=== PATIENT | female | born 1980 | race Caucasian/White ===

== ENCOUNTER 2021-01-18 17:46 | Emergency (ER) | payer BC ==
[~2021-01-18] VITALS: Ht 170.2 cm; Wt 113.4 kg
[2021-01-18 18:27] LABS: HEMOGLOBIN 13.8 gm/dl (12.3-15.3); RED BLOOD COUNT 5.58 M/UL (4.00-5.10); WHITE BLOOD COUNT 4.9 K/UL (4.5-11.0)
[2021-01-18 18:45] LABS: BUN/CREATININE RATIO 16 (0-10)
[2021-01-18] MEDS ORDERED: ZOFRAN4 MG PO (19:50)
== END 2021-01-18 21:50 | disposition home or self-care (01) ==
LOC: ER1 17:46
PROVIDERS: Physician Assistant
DX: Z23 Encounter for immunization (principal); U07.1 COVID-19
CPT/HCPCS: 71045; 80053; 85025; 99283; J2405; J7030; M0243